=== PATIENT | female | born 1965 | race Caucasian/White ===

== ENCOUNTER 2017-03-15 09:28 | Emergency (ER) | payer OTHER ==
[~2017-03-15] VITALS: Ht 165.1 cm; Wt 70.5 kg
[2017-03-15 09:48] VITALS: Ht 165.1 cm; Wt 70.5 kg
[2017-03-15] MEDS ORDERED: ACETAMINOPHEN 500 MG TAB PO STA (10:12)
[2017-03-15] MEDS ORDERED: IBUPROFEN 600 MG TAB PO ONE (10:30)
--- NOTE | 2017-03-15 10:39 | ERD ---
ER Documentation Chief Complaint Date/Time DATE: 03/15/17 TIME: 10:37 Chief Complaint FEVER, SORE THROAT, HEADACHE, LT CHEST PAIN SINCE YESTERDAY. HPI 51-year-old female presents with history of fever, sore throat, headache that started yesterday. She states that the pain is associated with limb swelling on her neck as well. She reports that she had some chest pain to the nurse, at this time she denies pain. She denies any shortness of breath. ROS All systems reviewed and are negative except as per history of present illness. Medications Home Meds Active Scripts Lidocaine (Lidocaine Viscous) 100 Ml Soln, 10 ML MM TID, #100 ML Prov:MERLYN WRIGHT PA-C 03/15/17 Ibuprofen* (Motrin*) 600 Mg Tab, 600 MG PO Q6, #30 TAB Prov:MERLYN WRIGHT PA-C 03/15/17 Amoxicillin* (Amoxicillin*) 500 Mg Cap, 500 MG PO TID for 10 Days, CAP Prov:MELRYN WRIGHT PA-C 03/15/17 Allergies Allergies: Coded Allergies: No Known Drug Allergies (Verified Allergy, Unknown, 03/15/17) PMhx/Soc History of Surgery: Yes (, BTL) Anesthesia Reaction: No Hx Neurological Disorder: No Hx Respiratory Disorders: No Hx Cardiac Disorders: No Hx Psychiatric Problems: No Hx Miscellaneous Medical Probl: No Hx Alcohol Use: Yes Hx Substance Use: No Hx Tobacco Use: No Smoking Status: Never smoker Physical Exam Vitals Vital Signs Date Time Temp Pulse Resp B/P Pulse Ox O2 Delivery O2 Flow Rate FiO2 03/15/17 09:48 102.1 112 16 122/75 96 Physical Exam \General: Patient is febrile, tachycardic, nontoxic and well-appearing, no acute distress HEENT: Head is normocephalic, atraumatic. No scleral icterus. Bilateral tonsillar exudate is present, uvula is is midline, no masses. Neck: Supple. Patient has positive tender cervical lymphadenopathy bilaterally in the anterior chains. Lungs: Clear to auscultation. Normal air movement. Heart: Tachycardic, normal rhythm. S1 and S2 are normal. No murmurs, gallops, or rubs. Abdomen: Nondistended. Extremities: No clubbing or cyanosis. Moving extremities x 4. No weakness. Neurologic: Alert and oriented 3. No focal deficits. Normal speech and gait. Skin: Normal turgor. No rash or lesions. Results 24 hrs Current Medications Medications (Trade) Dose Ordered Sig/Olga Route PRN Reason Start Time Stop Time Status Last Admin Dose Admin Acetaminophen (Tylenol Tab) 1,000 mg ONCE STAT PO 03/15/17 10:12 03/15/17 10:14 DC 03/15/17 10:25 Ibuprofen (Motrin) 600 mg ONCE ONCE PO 03/15/17 10:30 03/15/17 10:31 DC 03/15/17 10:25 Procedures/MDM 12-lead EKG(interpreted by supervising physician): Dr. Avalos Rate/Rhythm: , rate of 110 sinus tachycardia QRS, ST, T-waves: No changes consistent w/ acute ischemia, no intervals, no dysrhythmias, no ectopy Impression: No evidence of ischemia or arrhythmia Patient received Tylenol 1 g by mouth, Motrin 600 mg for pain. Rapid strep:Positive 51-year-old female presents with a history of fever, tonsillar exudate, lack of history of cough, positive cervical lymphadenopathy presenting with,Strep pharyngitis. No evidence of abscess, deep space infection, meningitis, acute coronary syndrome, dissection, pneumonia. Departure Diagnosis: Primary Impression: Strep pharyngitis Condition: Good MERLYN WRIGHT PA-C Mar 15, 2017 10:39
[2017-03-15] MEDS ORDERED: IBUP-1542 PO (11:44)
[2017-03-15] MEDS ORDERED: AMO500 PO (11:44)
[2017-03-15] MEDS ORDERED: LIDO20SO19 MM (11:44)
[2017-03-15 12:15] VITALS: BP 104/62; PULSE 91; RESP 16; TEMP 98.7
== END 2017-03-15 12:16 | disposition home or self-care (01) ==
LOC: FTE 09:28
DX: J02.0 Streptococcal pharyngitis (principal); R07.9 Chest pain, unspecified
CPT/HCPCS: 87880; 93005; Z7502; Z7610

== ENCOUNTER 2017-05-30 08:02 | Emergency (ER) | payer OTHER ==
[~2017-05-30] VITALS: Ht 167.6 cm; Wt 70.1 kg
[~2017-05-30 08:02] MED LIST: AMOX500C2 PO; IBUP-1542 PO; LIDO20SO19 MM
[2017-05-30 08:04] VITALS: Ht 167.6 cm; Wt 70.1 kg
--- NOTE | 2017-05-30 08:15 | ERD ---
ER Documentation Chief Complaint Chief Complaint Complains of a sorethroat x 3 days HPI 51y/o female patient with no significant medical history,presents to the emergency department c/o sore throat that started the ago. pain is sharp, rated 8/10, radiated to neck and ears. The symptoms are associated with subjective fever, headache, generalized arthralgia. Denies cough or upper respiratory symptoms, N/V/D. No recent history of previous episodes. Treatment attempted: None ROS SYSTEMIC symptoms: fever, no chills, no night sweats, no weight loss EYE symptoms: No blurred vision, no eye discharge OTOLARYNGEAL symptoms: No hearing loss. No ear pain, no sore throat CARDIOVASCULAR symptoms: No chest pain or discomfort, no palpitations. PULMONARY symptoms: No dyspnea, no cough, no wheezing. GASTROINTESTINAL symptoms: No abdominal pain, no nausea, no vomiting, no diarrhea MUSCULOSKELETAL symptoms: No arthralgias, no muscle aches. NEUROLOGY symptoms: No confusion, no syncope, no numbness or tingling. SKIN no rashes Medications Home Meds Active Scripts Ibuprofen* (Motrin*) 600 Mg Tab, 600 MG PO Q8 for PAIN, #30 TAB Prov:NADIA TELLEZ MD 05/30/17 Cephalexin* (Keflex*) 500 Mg Capsule, 500 MG PO TID for 7 Days, CAP Prov:NADIA TELLEZ MD 05/30/17 Lidocaine (Lidocaine Viscous) 100 Ml Soln, 10 ML MM TID, #100 ML Prov:MERLYN WRIGHT PA-C 03/15/17 Ibuprofen* (Motrin*) 600 Mg Tab, 600 MG PO Q6, #30 TAB Prov:MERLYN WRIGHT PA-C 03/15/17 Amoxicillin* (Amoxicillin*) 500 Mg Cap, 500 MG PO TID for 10 Days, CAP Prov:MERLYN WRIGHT PA-C 03/15/17 Allergies Allergies: Coded Allergies: No Known Drug Allergies (Verified Allergy, Unknown, 03/15/17) PMhx/Soc History of Surgery: Yes (, BTL) Anesthesia Reaction: No Hx Neurological Disorder: No Hx Respiratory Disorders: No Hx Cardiac Disorders: No Hx Psychiatric Problems: No Hx Miscellaneous Medical Probl: No Hx Alcohol Use: Yes Hx Substance Use: No Hx Tobacco Use: No Physical Exam Vitals Vital Signs Date Time Temp Pulse Resp B/P Pulse Ox O2 Delivery O2 Flow Rate FiO2 05/30/17 08:04 99.8 111 20 128/76 96 Physical Exam Patient is in no acute distress, vital signs stable. Alert and fully oriented. EYES: PERRLA, EOMI, Sclera and conjunctiva appear normal. EARS: Canals clear, tympanic membranes WNL THROAT: Erythematous oropharynx, tonsils enlarged, erythematous with bilateral exudate NECK: Supple, No lymphadenopathy. Full ROM without pain or tenderness. HEART: RRR, no rubs, murmurs, clicks or gallops. LUNGS: Clear to auscultation. ABDOMEN: Soft, non-tender without masses or hepatosplenomegaly. EXTREMITIES: No edema bilaterally. MUSC: Full ROM, no deformity, normal back exam Procedures/MDM 51y/o male patient previously healthy, presents to the ED c/o sore throat for 3 days. Vital signs stable, Physical exam showed tonsillar exudate. Differential diagnosis include but not limited to: Pharyngitis, tonsillitis, pharyngeal abscesses, upper respiratory infection. Physical examination and clinical presentation consistent most likely with acute suppurative tonsillitis. During the ED course the patient remained stable and asymptomatic Clinical impression discussed with patient who agrees with management. The patient is stable to be treated outpatient and will be discharged home with a Rx for cephalexin and ibuprofen Side effects of prescribed medications (headache, rash, drowsiness, constipation ) were reviewed. Side effects of prescribed NSAID medication (GI distress, edema, bleeding, HTN) were reviewed. If symptoms persist, worsen or new symptoms develop, then patient is instructed to follow-up with the primary care provider. If the patient is unable to see the primary care provider, then return to the ED immediately. Departure Diagnosis: Primary Impression: Acute suppurative tonsillitis Condition: Stable Patient Instructions: Self-Care for Sore Throats [facility] Additional Instructions: Muchas merrill por [facility] para perez servicio. Esperamos que en perez visita a la fernanda de emergencia perez problema medico haya sido solucionado y que se sienta mucho mejor. Para estar seguros que perez mejoria sigue en proceso, le pedimos el favor de hacer demi elena de seguimiento medico con perez doctor primario en los proximos 2-4 martinez. Lleve con usted estos documentos y las medicinas recetadas. Si kaushik sintomas empeoran y no puede tri a perez doctor, por favor regrese a fernanda de emergencia. En tiffanie que usted no tenga un mdico de atencin primaria: Llame al mdico o clnica comunitaria de referencia que aparece abajo william las horas de consultorio para hacer deim elena para que le vean. CLINICAS: [place] [id number] [phone] [facility] [phone] [id number] [facility] [phone] [facility] [phone] [id number] [place] [id number] [phone] [facility] [phone] NADIA FERGUSON MD May 30, 2017 08:15
[2017-05-30] MEDS ORDERED: CEPH-443 PO (08:34)
[2017-05-30] MEDS ORDERED: IBUP-1542 PO (08:34)
== END 2017-05-30 09:10 | disposition home or self-care (01) ==
LOC: FTE 08:02
DX: J03.90 Acute tonsillitis, unspecified (principal)
CPT/HCPCS: 99283